=== PATIENT | male | born 1995 | race Hispanic/Latino ===

== ENCOUNTER 2018-06-25 14:42 | Emergency (ER) | payer MEDICAID, OTHER ==
[2018-06-25] MEDS ORDERED: CEPHALEXIN 500 MG CAPSULE ONE (15:58)
[2018-06-25] MEDS ORDERED: IBUPROFEN 600 MG TABLET ONE (15:58)
== END 2018-06-25 16:15 | disposition home or self-care (01) ==
LOC: EDH 14:42
DX: S61.211A Laceration without foreign body of left index finger without damage to nail, initial encounter (principal); X58.XXXA Exposure to other specified factors, initial encounter; Y93.89 Activity, other specified; Y92.89 Other specified places as the place of occurrence of the external cause; Y99.8 Other external cause status
CPT/HCPCS: 29130; 73140

== ENCOUNTER 2021-10-10 15:05 | Emergency (ER) | payer OTHER ==
[~2021-10-10] VITALS: Ht 175.3 cm; Wt 93.0 kg
[2021-10-10 16:44] VITALS: BP 126/84
== END 2021-10-10 16:47 | disposition home or self-care (01) ==
LOC: EDH 15:05
DX: L72.3 Sebaceous cyst (principal); F41.9 Anxiety disorder, unspecified; F32.A Depression, unspecified